=== PATIENT | female | born 1930 | race Caucasian/White ===

== ENCOUNTER 2021-09-25 22:53 | Inpatient (IN) | payer OTHER ==
[2021-09-26] MEDS ORDERED: LACTATED RINGERS SOLUTION 1000 ML INFUS.BAG IV ONE ×2 (01:33→03:57)
[2021-09-26 01:54] LABS: BASO % 0.4 % (0-2.0); EOS % 1.3 % (0-4.5); HEMATOCRIT 40.8 % (32.4-45.2); HEMOGLOBIN 13.4 GM/dL (10.7-15.3); LYMPH % 23.5 % (8-40); MCH 28.6 pg (25.7-33.7); MCHC 32.7 g/dl (32.0-36.0); MEAN CELL VOLUME 87.3 fl (80-96); MEAN PLT VOLUME 8.7 fl (7.5-11.1); MONO % 8.4 % (3.8-10.2); NEUT % 66.4 % (42.8-82.8); PLATELET COUNT 267 10^3/uL (134-434); RBC 4.68 M/mm3 (3.60-5.2); RDW 15.3 % (11.6-15.6); WHITE BLOOD COUNT 14.2 K/mm3 (4.0-10.0)
[2021-09-26 02:13] LABS: INR 1.36 (0.83-1.09); PROTHROMBIN TIME (PATIENT) 15.7 SEC (9.7-13.0)
[2021-09-26 02:14] LABS: ALBUMIN 3.6 g/dl (3.4-5.0); CALCIUM 9.9 mg/dL (8.5-10.1); CO2 30 mmol/L (21-32); GLUCOSE,RANDOM 309 mg/dL (74-106)
[2021-09-26 02:16] LABS: ACTIVATED PTT 38.5 SECONDS (25.2-36.5)
[2021-09-26 02:17] LABS: CREATININE 1.5 mg/dL (0.55-1.3); SGOT/AST 12 U/L (15-37); SGPT/ALT 15 U/L (13-61)
[2021-09-26 02:19] LABS: BILIRUBIN,TOTAL 0.3 mg/dL (0.2-1); TOT PROT 6.7 g/dl (6.4-8.2)
[2021-09-26 02:20] LABS: ALK PHOS 93 U/L (45-117)
[2021-09-26 02:34] LABS: ANION GAP 8 MMOL/L (8-16); CHLORIDE 102 mmol/L (98-107); SODIUM 139 mmol/L (136-145)
[2021-09-26] MEDS ORDERED: ACETAMINOPHEN 1000 MG/100 ML BAG IVPB ONE (02:42)
[2021-09-26] MEDS ORDERED: ACETAMINOPHEN INJECTION 100 ML IVPB ONE (02:47)
[2021-09-26] MEDS ORDERED: LACTATED RINGERS SOLUTION 1,000 ML/1,000 ML INFUS.BAG IV SCH (04:00)
[2021-09-26] MEDS ORDERED: LIDOCAINE 5% TOPICAL PATCH TP ONE (04:53)
[2021-09-26] MEDS ORDERED: LIDOCAINE 5% TOPICAL PATCH ONE (04:59)
[2021-09-26 05:27] LABS: HEMOGLOBIN 11.8 GM/dL (10.7-15.3); MCH 28.2 pg (25.7-33.7); MCHC 31.9 g/dl (32.0-36.0); MEAN CELL VOLUME 88.5 fl (80-96); MEAN PLT VOLUME 9.2 fl (7.5-11.1); PLATELET COUNT 295 10^3/uL (134-434); RBC 4.17 M/mm3 (3.60-5.2); RDW 15.3 % (11.6-15.6)
[2021-09-26] MEDS ORDERED: ALBUTEROL SO4 2.5/IPRATROPIUM 0.5 INH SOL 3 ML VIAL.NEB. NEB PRN (07:40)
[2021-09-26] MEDS: LACTATED RINGERS SOLUTION 1,000 ML/1,000 ML INFUS.BAG IV SCH (08:47)
[2021-09-26] MEDS: PANTOPRAZOLE 40 MG TABLET PO SCH (10:47)
[2021-09-26] MEDS: MAGNESIUM OXIDE 400 MG TABLET (FP) PO SCH ×2 (10:47→21:16)
[2021-09-26] MEDS: DULoxetine HCL 30 MG CAPSULE.DR PO SCH (10:47)
[2021-09-26] MEDS: ZINC OXIDE 20% TOPICAL OINTMENT 30 GM TUBE TP SCH ×2 (10:47→21:16)
[2021-09-26 11:49] VITALS: BMI 33.3
[2021-09-26] MEDS: INSULIN SLIDING SCALE (NOVOLOG) 1 VIAL SQ SCH ×2 (13:50→17:14)
[2021-09-26] MEDS: GABAPENTIN 100 MG CAPSULE PO SCH ×2 (13:52→21:16)
[2021-09-26] MEDS ORDERED: LIDOCAINE PATCH REMOVAL MC ONE (17:00)
[2021-09-27] MEDS: LEVOTHYROXINE NA 50 MCG TABLET (FP) PO SCH (06:16)
[2021-09-27] MEDS: GABAPENTIN 100 MG CAPSULE PO SCH ×3 (06:16→23:36)
[2021-09-27] MEDS: INSULIN SLIDING SCALE (NOVOLOG) 1 VIAL SQ SCH ×3 (06:17→16:49)
[2021-09-27 09:49] LABS: BASO % 0.5 % (0-2.0); EOS % 2.7 % (0-4.5); HEMOGLOBIN 9.2 GM/dL (10.7-15.3); LYMPH % 30.7 % (8-40); MCH 28.5 pg (25.7-33.7); MCHC 32.7 g/dl (32.0-36.0); MEAN PLT VOLUME 8.8 fl (7.5-11.1); MONO % 6.6 % (3.8-10.2); NEUT % 59.5 % (42.8-82.8); PLATELET COUNT 241 10^3/uL (134-434); RBC 3.22 M/mm3 (3.60-5.2); RDW 15.1 % (11.6-15.6); WHITE BLOOD COUNT 15.5 K/mm3 (4.0-10.0)
[2021-09-27 10:14] LABS: BLOOD UREA NITROGEN 33.4 mg/dL (7-18); CREATININE 1.4 mg/dL (0.55-1.3)
[2021-09-27 10:15] LABS: CALCIUM 9.3 mg/dL (8.5-10.1)
[2021-09-27 10:16] LABS: BILIRUBIN,TOTAL 0.3 mg/dL (0.2-1); TOT PROT 5.5 g/dl (6.4-8.2)
[2021-09-27] MEDS ORDERED: INSULIN (NOVOLOG) ASPART 100 UNITS/ML 10ML VIAL ONE (11:08)
[2021-09-27] MEDS: LACTATED RINGERS SOLUTION 1,000 ML/1,000 ML INFUS.BAG IV SCH ×2 (11:18→23:00)
[2021-09-27] MEDS: PANTOPRAZOLE 40 MG TABLET PO SCH (11:19)
[2021-09-27] MEDS: ZINC OXIDE 20% TOPICAL OINTMENT 30 GM TUBE TP SCH ×2 (11:19→23:37)
[2021-09-27] MEDS: DULoxetine HCL 30 MG CAPSULE.DR PO SCH (11:19)
[2021-09-27] MEDS: MAGNESIUM OXIDE 400 MG TABLET (FP) PO SCH ×2 (11:19→23:36)
[2021-09-27] MEDS ORDERED: PANTOPRAZOLE SODIUM 80 MG in SODIUM CHLORIDE 100 ML IVPB SCH (17:30)
[2021-09-27 20:15] LABS: BASO % 0.5 % (0-2.0); EOS % 2.6 % (0-4.5); HEMOGLOBIN 8.4 GM/dL (10.7-15.3); LYMPH % 34.4 % (8-40); MCH 28.5 pg (25.7-33.7); MCHC 32.2 g/dl (32.0-36.0); MEAN CELL VOLUME 88.4 fl (80-96); MONO % 7.4 % (3.8-10.2); NEUT % 55.1 % (42.8-82.8); PLATELET COUNT 229 10^3/uL (134-434); RBC 2.95 M/mm3 (3.60-5.2); RDW 15.7 % (11.6-15.6)
[2021-09-27] MEDS: PANTOPRAZOLE SODIUM 160 MG in SODIUM CHLORIDE 290 ML IVPB SCH (23:00)
[2021-09-28] MEDS: GABAPENTIN 100 MG CAPSULE PO SCH ×3 (06:00→23:57)
[2021-09-28] MEDS: INSULIN SLIDING SCALE (NOVOLOG) 1 VIAL SQ SCH ×4 (06:01→17:20)
[2021-09-28] MEDS: LEVOTHYROXINE NA 50 MCG TABLET (FP) PO SCH ×2 (06:01→06:40)
[2021-09-28] MEDS ORDERED: ALBUTEROL SO4 2.5/IPRATROPIUM 0.5 INH SOL 3 ML VIAL.NEB. NEB PRN (06:14)
[2021-09-28 07:33] LABS: BASO % 0.4 % (0-2.0); EOS % 3.1 % (0-4.5); HEMATOCRIT 23.8 % (32.4-45.2); HEMOGLOBIN 7.6 GM/dL (10.7-15.3); MCHC 31.8 g/dl (32.0-36.0); MEAN CELL VOLUME 88.3 fl (80-96); MEAN PLT VOLUME 9.1 fl (7.5-11.1); MONO % 7.9 % (3.8-10.2); NEUT % 56.6 % (42.8-82.8); PLATELET COUNT 214 10^3/uL (134-434); RDW 15.5 % (11.6-15.6); WHITE BLOOD COUNT 11.7 K/mm3 (4.0-10.0)
[2021-09-28 07:49] LABS: CALCIUM 8.5 mg/dL (8.5-10.1)
[2021-09-28 07:50] LABS: ALBUMIN 2.8 g/dl (3.4-5.0); BLOOD UREA NITROGEN 25.5 mg/dL (7-18)
[2021-09-28 07:53] LABS: CREATININE 1.1 mg/dL (0.55-1.3)
[2021-09-28 07:54] LABS: BILIRUBIN,TOTAL 0.4 mg/dL (0.2-1); TOT PROT 5.1 g/dl (6.4-8.2)
[2021-09-28] MEDS ORDERED: PHYTONADIONE 10 MG/1 ML AMP IVPB ONE (09:54)
[2021-09-28] MEDS: DULoxetine HCL 30 MG CAPSULE.DR PO SCH (09:55)
[2021-09-28] MEDS: MAGNESIUM OXIDE 400 MG TABLET (FP) PO SCH ×2 (09:55→23:57)
[2021-09-28] MEDS: KCL 10 MEQ IVPB 10 MEQ/100 ML INFUS.BAG IVPB SCH ×2 (09:55→14:35)
[2021-09-28] MEDS ORDERED: HUM PROTHROMBIN CPLX(PCC)4FACT 1,000 UNIT/40 ML VIAL IVPB ONE ×2 (09:55→10:45)
[2021-09-28] MEDS: ZINC OXIDE 20% TOPICAL OINTMENT 30 GM TUBE TP SCH ×2 (09:56→22:00)
[2021-09-28] MEDS: LACTATED RINGERS SOLUTION 1,000 ML/1,000 ML INFUS.BAG IV SCH (12:03)
[2021-09-28] MEDS: PANTOPRAZOLE SODIUM 160 MG in SODIUM CHLORIDE 290 ML IVPB SCH (13:26)
[2021-09-28 19:17] LABS: BASO % 0.5 % (0-2.0); EOS % 1.8 % (0-4.5); HEMATOCRIT 26.2 % (32.4-45.2); HEMOGLOBIN 8.5 GM/dL (10.7-15.3); LYMPH % 30.9 % (8-40); MCH 28.6 pg (25.7-33.7); MCHC 32.6 g/dl (32.0-36.0); MEAN CELL VOLUME 87.7 fl (80-96); MEAN PLT VOLUME 8.9 fl (7.5-11.1); MONO % 7.7 % (3.8-10.2); NEUT % 59.1 % (42.8-82.8); PLATELET COUNT 208 10^3/uL (134-434); RBC 2.99 M/mm3 (3.60-5.2); WHITE BLOOD COUNT 11.8 K/mm3 (4.0-10.0)
[2021-09-29] MEDS: MAGNESIUM OXIDE 400 MG TABLET (FP) PO SCH ×3 (00:11→21:42)
[2021-09-29] MEDS: GABAPENTIN 100 MG CAPSULE PO SCH ×4 (00:12→21:42)
[2021-09-29] MEDS: LACTATED RINGERS SOLUTION 1,000 ML/1,000 ML INFUS.BAG IV SCH ×3 (00:14→11:24)
[2021-09-29 00:58] LABS: HEMOGLOBIN 8.3 GM/dL (10.7-15.3); MONO % 8.4 % (3.8-10.2)
[2021-09-29 01:07] LABS: HEMATOCRIT 24.7 % (32.4-45.2); MCH 28.9 pg (25.7-33.7); MCHC 33.5 g/dl (32.0-36.0); MEAN CELL VOLUME 86.4 fl (80-96); MEAN PLT VOLUME 8.6 fl (7.5-11.1); NEUT % 56.6 % (42.8-82.8); PLATELET COUNT 193 10^3/uL (134-434); RBC 2.86 M/mm3 (3.60-5.2); RDW 15.4 % (11.6-15.6); WHITE BLOOD COUNT 10.7 K/mm3 (4.0-10.0)
[2021-09-29 01:08] LABS: BASO % 0.5 % (0-2.0); EOS % 2.5 % (0-4.5)
[2021-09-29] MEDS: LEVOTHYROXINE NA 50 MCG TABLET (FP) PO SCH (07:38)
[2021-09-29 07:42] LABS: BASO % 0.5 % (0-2.0); EOS % 2.2 % (0-4.5); HEMOGLOBIN 8.3 GM/dL (10.7-15.3); MCH 28.2 pg (25.7-33.7); MEAN CELL VOLUME 88.2 fl (80-96); MEAN PLT VOLUME 8.6 fl (7.5-11.1); MONO % 7.9 % (3.8-10.2); NEUT % 62.4 % (42.8-82.8); PLATELET COUNT 201 10^3/uL (134-434); RBC 2.95 M/mm3 (3.60-5.2); RDW 15.1 % (11.6-15.6); WHITE BLOOD COUNT 11.4 K/mm3 (4.0-10.0)
[2021-09-29] MEDS: INSULIN SLIDING SCALE (NOVOLOG) 1 VIAL SQ SCH ×3 (07:51→17:06)
[2021-09-29] MEDS: DULoxetine HCL 30 MG CAPSULE.DR PO SCH (09:25)
[2021-09-29] MEDS: PANTOPRAZOLE SODIUM 160 MG in SODIUM CHLORIDE 290 ML IVPB SCH (09:25)
[2021-09-29] MEDS: ZINC OXIDE 20% TOPICAL OINTMENT 30 GM TUBE TP SCH ×2 (09:26→21:42)
[2021-09-29 15:14] LABS: BASO % 0.4 % (0-2.0); EOS % 1.5 % (0-4.5); HEMATOCRIT 24.2 % (32.4-45.2); LYMPH % 25.5 % (8-40); MCH 28.8 pg (25.7-33.7); MCHC 33.2 g/dl (32.0-36.0); MEAN CELL VOLUME 86.9 fl (80-96); MEAN PLT VOLUME 8.3 fl (7.5-11.1); MONO % 7.2 % (3.8-10.2); NEUT % 65.4 % (42.8-82.8); PLATELET COUNT 199 10^3/uL (134-434); RBC 2.79 M/mm3 (3.60-5.2); RDW 15.2 % (11.6-15.6); WHITE BLOOD COUNT 9.9 K/mm3 (4.0-10.0)
[2021-09-29 15:34] LABS: ALBUMIN 2.8 g/dl (3.4-5.0); CALCIUM 8.1 mg/dL (8.5-10.1)
[2021-09-29 15:37] LABS: CREATININE 0.9 mg/dL (0.55-1.3)
[2021-09-29 15:38] LABS: BILIRUBIN,TOTAL 0.5 mg/dL (0.2-1)
[2021-09-29] MEDS: BACITRACIN 15 GM TUBE TOPICAL OINTMENT TP SCH (18:25)
[2021-09-29] MEDS ORDERED: ALBUTEROL SO4 2.5/IPRATROPIUM 0.5 INH SOL 3 ML VIAL.NEB. NEB PRN (19:13)
[2021-09-29] MEDS: POLYETHYLENE GLYCOL (HEALTHYLAX) 3350 17 GM PACKET PO SCH (21:13)
[2021-09-30] MEDS ORDERED: PANTOPRAZOLE SODIUM 160 MG in SODIUM CHLORIDE 290 ML IVPB SCH (06:00)
[2021-09-30] MEDS: LEVOTHYROXINE NA 50 MCG TABLET (FP) PO SCH (06:32)
[2021-09-30] MEDS: GABAPENTIN 100 MG CAPSULE PO SCH ×3 (06:32→21:19)
[2021-09-30] MEDS: INSULIN SLIDING SCALE (NOVOLOG) 1 VIAL SQ SCH ×3 (06:34→17:31)
[2021-09-30] MEDS: BACITRACIN 15 GM TUBE TOPICAL OINTMENT TP SCH (10:42)
[2021-09-30] MEDS: POLYETHYLENE GLYCOL (HEALTHYLAX) 3350 17 GM PACKET PO SCH ×2 (10:43→21:19)
[2021-09-30] MEDS: DULoxetine HCL 30 MG CAPSULE.DR PO SCH (10:44)
[2021-09-30] MEDS: MAGNESIUM OXIDE 400 MG TABLET (FP) PO SCH ×2 (10:44→21:19)
[2021-09-30 11:18] LABS: BASO % 0.5 % (0-2.0); EOS % 1.7 % (0-4.5); HEMATOCRIT 27.7 % (32.4-45.2); HEMOGLOBIN 9.1 GM/dL (10.7-15.3); LYMPH % 24.9 % (8-40); MCHC 32.9 g/dl (32.0-36.0); MEAN CELL VOLUME 88.2 fl (80-96); MEAN PLT VOLUME 8.2 fl (7.5-11.1); MONO % 8.4 % (3.8-10.2); NEUT % 64.5 % (42.8-82.8); PLATELET COUNT 243 10^3/uL (134-434); RBC 3.14 M/mm3 (3.60-5.2); RDW 14.8 % (11.6-15.6); WHITE BLOOD COUNT 10.7 K/mm3 (4.0-10.0)
[2021-09-30] MEDS: LACTATED RINGERS SOLUTION 1,000 ML/1,000 ML INFUS.BAG IV SCH (12:07)
[2021-09-30] MEDS: ZINC OXIDE 20% TOPICAL OINTMENT 30 GM TUBE TP SCH ×2 (12:07→21:19)
[2021-09-30] MEDS ORDERED: BISACODYL 5 MG TABLET.DR (FP) PO ONE (15:00)
[2021-09-30] MEDS ORDERED: PEG 3350/NA SULF BICARB CL/KCL 4000 ML SOLN.RECON PO ONE (16:00)
[2021-10-01] MEDS: LACTATED RINGERS SOLUTION 1,000 ML/1,000 ML INFUS.BAG IV SCH ×2 (01:07→12:56)
[2021-10-01] MEDS: GABAPENTIN 100 MG CAPSULE PO SCH ×3 (06:06→22:17)
[2021-10-01] MEDS: LEVOTHYROXINE NA 50 MCG TABLET (FP) PO SCH (06:06)
[2021-10-01] MEDS: INSULIN SLIDING SCALE (NOVOLOG) 1 VIAL SQ SCH ×4 (06:06→23:10)
[2021-10-01 08:37] LABS: INR 1.12 (0.83-1.09); PROTHROMBIN TIME (PATIENT) 12.9 SEC (9.7-13.0)
[2021-10-01 08:44] LABS: BASO % 0.4 % (0-2.0); EOS % 2.8 % (0-4.5); HEMATOCRIT 26.8 % (32.4-45.2); HEMOGLOBIN 8.8 GM/dL (10.7-15.3); LYMPH % 31.7 % (8-40); MCH 28.9 pg (25.7-33.7); MCHC 32.8 g/dl (32.0-36.0); MEAN CELL VOLUME 88.1 fl (80-96); MEAN PLT VOLUME 8.6 fl (7.5-11.1); MONO % 8.7 % (3.8-10.2); NEUT % 56.4 % (42.8-82.8); PLATELET COUNT 248 10^3/uL (134-434); RBC 3.05 M/mm3 (3.60-5.2); RDW 14.8 % (11.6-15.6)
[2021-10-01 08:55] LABS: CHLORIDE 104 mmol/L (98-107); SODIUM 143 mmol/L (136-145)
[2021-10-01 08:59] LABS: BLOOD UREA NITROGEN 3.6 mg/dL (7-18); CALCIUM 8.5 mg/dL (8.5-10.1); CO2 32 mmol/L (21-32); GLUCOSE,RANDOM 205 mg/dL (74-106)
[2021-10-01 09:03] LABS: CREATININE 0.8 mg/dL (0.55-1.3)
[2021-10-01 09:09] LABS: ANION GAP 7 MMOL/L (8-16)
[2021-10-01] MEDS ORDERED: TETRACAINE/BENZOCAINE/BUTAMBEN 20 GM SPR TP ONE ×2 (10:25→10:39)
[2021-10-01] MEDS ORDERED: LIDOCAINE HCL 2% JELLY 10 ML CARTRIDGE ONE (11:12)
[2021-10-01] MEDS ORDERED: LIDOCAINE HCL 2% 100 MG/5 ML DISP.SYRIN NR ONE (11:14)
[2021-10-01] MEDS: KCL 10 MEQ IVPB 10 MEQ/100 ML INFUS.BAG IVPB SCH ×3 (12:28→17:02)
[2021-10-01] MEDS: PANTOPRAZOLE 40 MG TABLET PO SCH (12:54)
[2021-10-01] MEDS: MAGNESIUM OXIDE 400 MG TABLET (FP) PO SCH ×2 (12:54→22:17)
[2021-10-01] MEDS: POLYETHYLENE GLYCOL (HEALTHYLAX) 3350 17 GM PACKET PO SCH ×2 (12:55→23:01)
[2021-10-01] MEDS: BACITRACIN 15 GM TUBE TOPICAL OINTMENT TP SCH (12:55)
[2021-10-01] MEDS: ZINC OXIDE 20% TOPICAL OINTMENT 30 GM TUBE TP SCH ×2 (12:55→22:18)
[2021-10-01] MEDS: DULoxetine HCL 30 MG CAPSULE.DR PO SCH (12:55)
[2021-10-01] MEDS ORDERED: POTASSIUM CHLORIDE TABS 20 MEQ TABLET.ER (FP) PO ONE (14:19)
[2021-10-01 16:04] LABS: BASO % 0.7 % (0-2.0); EOS % 2.4 % (0-4.5); HEMOGLOBIN 8.7 GM/dL (10.7-15.3); MCH 29.5 pg (25.7-33.7); MCHC 33.6 g/dl (32.0-36.0); MEAN CELL VOLUME 87.9 fl (80-96); MEAN PLT VOLUME 8.6 fl (7.5-11.1); MONO % 9.1 % (3.8-10.2); NEUT % 59.8 % (42.8-82.8); PLATELET COUNT 240 10^3/uL (134-434); RBC 2.96 M/mm3 (3.60-5.2); RDW 15.2 % (11.6-15.6); WHITE BLOOD COUNT 10.3 K/mm3 (4.0-10.0)
[2021-10-01] MEDS ORDERED: INSULIN SLIDING SCALE (NOVOLOG) 1 VIAL SQ SCH (23:00)
[2021-10-02] MEDS: LACTATED RINGERS SOLUTION 1,000 ML/1,000 ML INFUS.BAG IV SCH ×2 (03:44→11:25)
[2021-10-02] MEDS: GABAPENTIN 100 MG CAPSULE PO SCH ×3 (06:41→22:25)
[2021-10-02] MEDS: LEVOTHYROXINE NA 50 MCG TABLET (FP) PO SCH (06:41)
[2021-10-02] MEDS: INSULIN SLIDING SCALE (NOVOLOG) 1 VIAL SQ SCH ×4 (06:46→22:28)
[2021-10-02 09:02] LABS: BASO % 0.4 % (0-2.0); EOS % 1.4 % (0-4.5); HEMATOCRIT 26.1 % (32.4-45.2); HEMOGLOBIN 8.4 GM/dL (10.7-15.3); LYMPH % 24.4 % (8-40); MCH 28.6 pg (25.7-33.7); MCHC 32.1 g/dl (32.0-36.0); MEAN PLT VOLUME 8.7 fl (7.5-11.1); MONO % 8.2 % (3.8-10.2); NEUT % 65.6 % (42.8-82.8); PLATELET COUNT 239 10^3/uL (134-434); RBC 2.93 M/mm3 (3.60-5.2); RDW 15.1 % (11.6-15.6); WHITE BLOOD COUNT 12.6 K/mm3 (4.0-10.0)
[2021-10-02 09:22] LABS: CALCIUM 8.3 mg/dL (8.5-10.1)
[2021-10-02 09:23] LABS: BLOOD UREA NITROGEN 4.5 mg/dL (7-18)
[2021-10-02 09:26] LABS: CREATININE 0.9 mg/dL (0.55-1.3)
[2021-10-02] MEDS: BACITRACIN 15 GM TUBE TOPICAL OINTMENT TP SCH (11:24)
[2021-10-02] MEDS: MAGNESIUM OXIDE 400 MG TABLET (FP) PO SCH ×2 (11:24→22:25)
[2021-10-02] MEDS: DULoxetine HCL 30 MG CAPSULE.DR PO SCH (11:24)
[2021-10-02] MEDS: POLYETHYLENE GLYCOL (HEALTHYLAX) 3350 17 GM PACKET PO SCH ×2 (11:24→22:26)
[2021-10-02] MEDS: PANTOPRAZOLE 40 MG TABLET PO SCH (11:24)
[2021-10-02] MEDS: ZINC OXIDE 20% TOPICAL OINTMENT 30 GM TUBE TP SCH ×2 (11:25→22:28)
[2021-10-03] MEDS: LACTATED RINGERS SOLUTION 1,000 ML/1,000 ML INFUS.BAG IV SCH ×2 (02:52→14:55)
[2021-10-03] MEDS: LEVOTHYROXINE NA 50 MCG TABLET (FP) PO SCH (06:39)
[2021-10-03] MEDS: GABAPENTIN 100 MG CAPSULE PO SCH ×3 (06:39→22:25)
[2021-10-03] MEDS: INSULIN SLIDING SCALE (NOVOLOG) 1 VIAL SQ SCH ×4 (06:40→22:27)
[2021-10-03 08:14] LABS: BASO % 0.5 % (0-2.0); EOS % 2.6 % (0-4.5); HEMOGLOBIN 8.8 GM/dL (10.7-15.3); LYMPH % 26.1 % (8-40); MCHC 32.7 g/dl (32.0-36.0); MEAN CELL VOLUME 88.7 fl (80-96); MEAN PLT VOLUME 8.5 fl (7.5-11.1); MONO % 7.2 % (3.8-10.2); NEUT % 63.6 % (42.8-82.8); PLATELET COUNT 236 10^3/uL (134-434); RBC 3.05 M/mm3 (3.60-5.2); RDW 15.3 % (11.6-15.6); WHITE BLOOD COUNT 10.2 K/mm3 (4.0-10.0)
[2021-10-03 08:36] LABS: CALCIUM 8.4 mg/dL (8.5-10.1)
[2021-10-03 08:37] LABS: ALBUMIN 2.8 g/dl (3.4-5.0)
[2021-10-03 08:38] LABS: MAGNESIUM 1.6 mg/dL (1.8-2.4)
[2021-10-03 08:40] LABS: CREATININE 0.8 mg/dL (0.55-1.3)
[2021-10-03 08:41] LABS: BILIRUBIN,TOTAL 0.4 mg/dL (0.2-1); TOT PROT 5.5 g/dl (6.4-8.2)
[2021-10-03] MEDS: BACITRACIN 15 GM TUBE TOPICAL OINTMENT TP SCH (09:23)
[2021-10-03] MEDS: PANTOPRAZOLE 40 MG TABLET PO SCH (09:23)
[2021-10-03] MEDS: ZINC OXIDE 20% TOPICAL OINTMENT 30 GM TUBE TP SCH ×2 (09:23→22:24)
[2021-10-03] MEDS: DULoxetine HCL 30 MG CAPSULE.DR PO SCH (09:23)
[2021-10-03] MEDS: POLYETHYLENE GLYCOL (HEALTHYLAX) 3350 17 GM PACKET PO SCH ×3 (09:23→22:24)
[2021-10-03] MEDS: MAGNESIUM OXIDE 400 MG TABLET (FP) PO SCH ×2 (09:23→22:25)
[2021-10-03] MEDS ORDERED: POTASSIUM CHLORIDE ORAL LIQUID 20 MEQ/15 ML PO ONE (12:10)
[2021-10-04] MEDS: LACTATED RINGERS SOLUTION 1,000 ML/1,000 ML INFUS.BAG IV SCH (02:35)
[2021-10-04] MEDS: GABAPENTIN 100 MG CAPSULE PO SCH ×3 (06:34→22:40)
[2021-10-04] MEDS: INSULIN SLIDING SCALE (NOVOLOG) 1 VIAL SQ SCH ×4 (06:39→22:41)
[2021-10-04] MEDS: LEVOTHYROXINE NA 50 MCG TABLET (FP) PO SCH (06:41)
[2021-10-04 08:40] LABS: BASO % 0.4 % (0-2.0); EOS % 2.8 % (0-4.5); HEMATOCRIT 27.6 % (32.4-45.2); HEMOGLOBIN 9.1 GM/dL (10.7-15.3); LYMPH % 25.6 % (8-40); MEAN CELL VOLUME 87.7 fl (80-96); MEAN PLT VOLUME 8.2 fl (7.5-11.1); MONO % 6.8 % (3.8-10.2); NEUT % 64.4 % (42.8-82.8); PLATELET COUNT 263 10^3/uL (134-434); RBC 3.15 M/mm3 (3.60-5.2); RDW 14.8 % (11.6-15.6); WHITE BLOOD COUNT 11.3 K/mm3 (4.0-10.0)
[2021-10-04 09:03] LABS: BLOOD UREA NITROGEN 7.8 mg/dL (7-18); CALCIUM 9.2 mg/dL (8.5-10.1)
[2021-10-04] MEDS: POLYETHYLENE GLYCOL (HEALTHYLAX) 3350 17 GM PACKET PO SCH ×2 (10:48→22:40)
[2021-10-04] MEDS: MAGNESIUM OXIDE 400 MG TABLET (FP) PO SCH ×2 (10:51→22:40)
[2021-10-04] MEDS: DULoxetine HCL 30 MG CAPSULE.DR PO SCH (10:51)
[2021-10-04] MEDS: PANTOPRAZOLE 40 MG TABLET PO SCH (10:51)
[2021-10-04] MEDS: BACITRACIN 15 GM TUBE TOPICAL OINTMENT TP SCH (15:42)
[2021-10-04] MEDS: ZINC OXIDE 20% TOPICAL OINTMENT 30 GM TUBE TP SCH ×2 (15:43→22:42)
[2021-10-04] MEDS: APIXABAN 2.5 MG TABLET PO SCH (22:40)
[2021-10-05] MEDS: GABAPENTIN 100 MG CAPSULE PO SCH ×3 (05:59→21:16)
[2021-10-05] MEDS: LEVOTHYROXINE NA 50 MCG TABLET (FP) PO SCH (05:59)
[2021-10-05] MEDS: INSULIN SLIDING SCALE (NOVOLOG) 1 VIAL SQ SCH ×4 (06:01→21:16)
[2021-10-05 09:05] LABS: BASO % 0.5 % (0-2.0); HEMATOCRIT 28.2 % (32.4-45.2); HEMOGLOBIN 9.3 GM/dL (10.7-15.3); LYMPH % 26.1 % (8-40); MCHC 32.9 g/dl (32.0-36.0); MEAN CELL VOLUME 88.1 fl (80-96); MEAN PLT VOLUME 8.2 fl (7.5-11.1); MONO % 8.6 % (3.8-10.2); NEUT % 61.8 % (42.8-82.8); PLATELET COUNT 285 10^3/uL (134-434); RDW 14.9 % (11.6-15.6); WHITE BLOOD COUNT 11.8 K/mm3 (4.0-10.0)
[2021-10-05 09:29] LABS: BLOOD UREA NITROGEN 9.5 mg/dL (7-18); CALCIUM 8.8 mg/dL (8.5-10.1)
[2021-10-05] MEDS: APIXABAN 2.5 MG TABLET PO SCH ×2 (10:02→21:16)
[2021-10-05] MEDS: MAGNESIUM OXIDE 400 MG TABLET (FP) PO SCH ×2 (10:02→21:16)
[2021-10-05] MEDS: DULoxetine HCL 30 MG CAPSULE.DR PO SCH (10:02)
[2021-10-05] MEDS: INSULIN (LEVEMIR) 100 UNITS/ML UNITS SQ SCH ×2 (10:03→21:16)
[2021-10-05] MEDS: PANTOPRAZOLE 40 MG TABLET PO SCH (10:03)
[2021-10-05] MEDS: POLYETHYLENE GLYCOL (HEALTHYLAX) 3350 17 GM PACKET PO SCH ×2 (10:03→21:16)
[2021-10-05] MEDS: BACITRACIN 15 GM TUBE TOPICAL OINTMENT TP SCH (10:04)
[2021-10-05] MEDS: ZINC OXIDE 20% TOPICAL OINTMENT 30 GM TUBE TP SCH ×2 (10:05→21:17)
[2021-10-05 22:28] VITALS: TEMP 98.8
[2021-10-06 05:51] VITALS: BP 111/63; PULSE 84
[2021-10-06] MEDS: INSULIN SLIDING SCALE (NOVOLOG) 1 VIAL SQ SCH (06:25)
[2021-10-06] MEDS: GABAPENTIN 100 MG CAPSULE PO SCH (06:25)
[2021-10-06] MEDS: LEVOTHYROXINE NA 50 MCG TABLET (FP) PO SCH (06:25)
[2021-10-06] MEDS: INSULIN (LEVEMIR) 100 UNITS/ML UNITS SQ SCH (06:25)
[2021-10-06] MEDS: MAGNESIUM OXIDE 400 MG TABLET (FP) PO SCH (09:11)
[2021-10-06] MEDS: PANTOPRAZOLE 40 MG TABLET PO SCH (09:12)
[2021-10-06] MEDS: DULoxetine HCL 30 MG CAPSULE.DR PO SCH (09:12)
[2021-10-06] MEDS: POLYETHYLENE GLYCOL (HEALTHYLAX) 3350 17 GM PACKET PO SCH (09:12)
[2021-10-06] MEDS: APIXABAN 2.5 MG TABLET PO SCH (09:12)
[2021-10-06] MEDS: BACITRACIN 15 GM TUBE TOPICAL OINTMENT TP SCH (09:14)
== END 2021-10-06 12:20 | DRG 813 ==
LOC: JER 22:53 → JERBED 09-26 04:35 → J6S 09-26 05:59 → J4W 09-27 21:18 → J7W 09-29 15:54
PROC: 0DB78ZX Excision of Stomach, Pylorus, Via Natural or Artificial Opening Endoscopic, Diagnostic (ICD-10-PCS; 2021-10-01)
PROC: 0DB68ZX Excision of Stomach, Via Natural or Artificial Opening Endoscopic, Diagnostic (ICD-10-PCS; 2021-10-01)
PROC: 0DBL8ZX Excision of Transverse Colon, Via Natural or Artificial Opening Endoscopic, Diagnostic (ICD-10-PCS; 2021-10-01)
PROC: 0DB98ZX Excision of Duodenum, Via Natural or Artificial Opening Endoscopic, Diagnostic (ICD-10-PCS; principal; 2021-10-01 10:30)
DX: D68.32 Hemorrhagic disorder due to extrinsic circulating anticoagulants (principal); K57.93 Diverticulitis of intestine, part unspecified, without perforation or abscess with bleeding; N17.9 Acute kidney failure, unspecified; I48.91 Unspecified atrial fibrillation; I10 Essential (primary) hypertension; K62.9 Disease of anus and rectum, unspecified; E78.5 Hyperlipidemia, unspecified; D12.3 Benign neoplasm of transverse colon; K55.20 Angiodysplasia of colon without hemorrhage; E03.9 Hypothyroidism, unspecified; K64.8 Other hemorrhoids; D12.1 Benign neoplasm of appendix; T45.515A Adverse effect of anticoagulants, initial encounter; F41.8 Other specified anxiety disorders; K29.60 Other gastritis without bleeding; I12.9 Hypertensive chronic kidney disease with stage 1 through stage 4 chronic kidney disease, or unspecified chronic kidney disease; E11.22 Type 2 diabetes mellitus with diabetic chronic kidney disease; N18.9 Chronic kidney disease, unspecified; F03.90 Unspecified dementia, unspecified severity, without behavioral disturbance, psychotic disturbance, mood disturbance, and anxiety; E66.9 Obesity, unspecified; Z68.33 Body mass index [BMI] 33.0-33.9, adult; Z99.81 Dependence on supplemental oxygen
CPT/HCPCS: 36415; 36430; 74176-TC; 80048; 80053; 82272; 82550; 82962; 83735; 84484; 85025; 85027; 85610; 85730; 86850; 86900; 86901; 86922; 87070; 87186; 87205; 88305-TC; 93005; 93010; 97116-GP; 97161-GP; 99285-25; C9803; J0131; J7168; P9058; U0003; U0005

== ENCOUNTER 2021-11-29 21:20 | Inpatient (IN) | payer OTHER ==
[2021-11-29] MEDS ORDERED: ACETAMINOPHEN 1000 MG/100 ML BAG IVPB ONE (22:53)
[2021-11-29] MEDS ORDERED: SODIUM CHLORIDE 0.9% 500 ML INFUS.BAG IV ONE (22:54)
[2021-11-29] MEDS ORDERED: ACETAMINOPHEN INJECTION 100 ML IVPB ONE (22:59)
[2021-11-29 23:09] LABS: ALBUMIN 3.1 g/dl (3.4-5.0); CALCIUM 8.8 mg/dL (8.5-10.1)
[2021-11-29 23:10] LABS: MAGNESIUM 1.6 mg/dL (1.8-2.4)
[2021-11-29 23:12] LABS: CREATININE 1.2 mg/dL (0.55-1.3)
[2021-11-29 23:14] LABS: BILIRUBIN,TOTAL 0.4 mg/dL (0.2-1); TOT PROT 6.3 g/dl (6.4-8.2)
[2021-11-30 00:15] LABS: BASO % 0.8 % (0-2.0); EOS % 2.6 % (0-4.5); HEMOGLOBIN 11.1 GM/dL (10.7-15.3); LYMPH % 29.1 % (8-40); MCH 25.3 pg (25.7-33.7); MCHC 32.8 g/dl (32.0-36.0); MEAN CELL VOLUME 77.1 fl (80-96); MEAN PLT VOLUME 8.6 fl (7.5-11.1); MONO % 15.8 % (3.8-10.2); NEUT % 51.7 % (42.8-82.8); PLATELET COUNT 265 10^3/uL (134-434); RBC 4.41 M/mm3 (3.60-5.2); RDW 15.6 % (11.6-15.6); WHITE BLOOD COUNT 8.1 K/mm3 (4.0-10.0)
[2021-11-30 01:33] LABS: PH,URINE 6.5 (5.0-8.0); URINE APPEARANCE CLEAR; URINE BILIRUBIN NEGATIVE (NEGATIVE); URINE COLOR YELLOW; URINE GLUCOSE (UA) NEGATIVE (NEGATIVE); URINE KETONE NEGATIVE (NEGATIVE); URINE LEUK ESTERASE NEGATIVE (NEGATIVE); URINE NITRITE NEGATIVE (NEGATIVE); URINE PROTEIN NEGATIVE (NEGATIVE); URINE UROBILINOGEN 0.2 mg/dL (0.2-1.0)
[2021-11-30] MEDS ORDERED: LACTATED RINGERS SOLUTION 1000 ML INFUS.BAG IV ONE (03:37)
[2021-11-30] MEDS ORDERED: AZITHROMYCIN 250 MG TABLET PO ONE (04:39)
[2021-11-30] MEDS: GABAPENTIN 100 MG CAPSULE PO SCH ×3 (06:24→21:33)
[2021-11-30] MEDS: LEVOTHYROXINE NA 50 MCG TABLET (FP) PO SCH (06:24)
[2021-11-30] MEDS: INSULIN SLIDING SCALE (NOVOLOG) 1 VIAL SQ SCH ×4 (06:24→21:33)
[2021-11-30 06:54] VITALS: BMI 26.9
[2021-11-30] MEDS ORDERED: MAGNESIUM OXIDE 400 MG TABLET (FP) PO ONE (08:24)
[2021-11-30] MEDS: ALBUTEROL SO4 2.5/IPRATROPIUM 0.5 INH SOL 3 ML VIAL.NEB. NEB SCH ×3 (09:00→19:24)
[2021-11-30] MEDS ORDERED: CEFTRIAXONE 1 GM in DEXTROSE 5%-WATER - 50 ML IVPB SCH (10:00)
[2021-11-30] MEDS: APIXABAN 2.5 MG TABLET PO SCH ×2 (10:48→21:33)
[2021-11-30] MEDS: PANTOPRAZOLE 40 MG TABLET PO SCH (10:49)
[2021-11-30] MEDS: DULoxetine HCL 30 MG CAPSULE.DR PO SCH (11:29)
[2021-11-30] MEDS ORDERED: MEROPENEM 1 GM VIAL (RESTRICTED TO ID) IVPB ONE ×2 (12:47→16:52)
[2021-11-30] MEDS ORDERED: DEXTROSE 5%-WATER 100 ML IVPB ONE ×2 (12:47→16:52)
[2021-11-30] MEDS: MEROPENEM 1 GM in DEXTROSE 5%-WATER 100 ML IVPB SCH ×2 (12:48→17:08)
[2021-11-30] MEDS ORDERED: ALBUTEROL SO4 2.5/IPRATROPIUM 0.5 INH SOL 3 ML VIAL.NEB. NEB SCH (16:00)
[2021-12-01] MEDS ORDERED: MEROPENEM 1 GM VIAL (RESTRICTED TO ID) IVPB ONE ×3 (00:55→16:34)
[2021-12-01] MEDS ORDERED: DEXTROSE 5%-WATER 100 ML IVPB ONE ×3 (00:55→16:34)
[2021-12-01] MEDS: MEROPENEM 1 GM in DEXTROSE 5%-WATER 100 ML IVPB SCH ×3 (01:04→17:22)
[2021-12-01] MEDS: GABAPENTIN 100 MG CAPSULE PO SCH ×3 (06:23→21:56)
[2021-12-01] MEDS: LEVOTHYROXINE NA 50 MCG TABLET (FP) PO SCH (06:23)
[2021-12-01] MEDS: INSULIN SLIDING SCALE (NOVOLOG) 1 VIAL SQ SCH ×4 (06:24→21:56)
[2021-12-01] MEDS: ALBUTEROL SO4 2.5/IPRATROPIUM 0.5 INH SOL 3 ML VIAL.NEB. NEB SCH ×4 (08:48→20:39)
[2021-12-01] MEDS ORDERED: AZITHROMYCIN 250 MG TABLET PO SCH (10:00)
[2021-12-01 10:22] LABS: BASO % 0.6 % (0-2.0); EOS % 2.6 % (0-4.5); HEMATOCRIT 32.5 % (32.4-45.2); HEMOGLOBIN 10.7 GM/dL (10.7-15.3); LYMPH % 26.2 % (8-40); MCH 25.6 pg (25.7-33.7); MEAN CELL VOLUME 77.6 fl (80-96); MEAN PLT VOLUME 8.5 fl (7.5-11.1); MONO % 9.9 % (3.8-10.2); NEUT % 60.7 % (42.8-82.8); PLATELET COUNT 255 10^3/uL (134-434); RBC 4.19 M/mm3 (3.60-5.2); RDW 15.8 % (11.6-15.6)
[2021-12-01] MEDS ORDERED: TRIMETHOBENZAMIDE HCL 300 MG CAPSULE PO ONE (10:39)
[2021-12-01 10:53] LABS: MAGNESIUM 1.7 mg/dL (1.8-2.4)
[2021-12-01 10:57] LABS: BILIRUBIN,TOTAL 0.8 mg/dL (0.2-1)
[2021-12-01] MEDS: DULoxetine HCL 30 MG CAPSULE.DR PO SCH (11:26)
[2021-12-01] MEDS: PANTOPRAZOLE 40 MG TABLET PO SCH (11:26)
[2021-12-01] MEDS: APIXABAN 2.5 MG TABLET PO SCH ×2 (11:26→21:56)
[2021-12-01] MEDS ORDERED: MAGNESIUM OXIDE 400 MG TABLET (FP) PO ONE (15:00)
[2021-12-02] MEDS ORDERED: MEROPENEM 1 GM VIAL (RESTRICTED TO ID) IVPB ONE ×3 (01:14→17:09)
[2021-12-02] MEDS ORDERED: DEXTROSE 5%-WATER 100 ML IVPB ONE ×3 (01:14→17:09)
[2021-12-02] MEDS: MEROPENEM 1 GM in DEXTROSE 5%-WATER 100 ML IVPB SCH ×3 (01:56→17:12)
[2021-12-02] MEDS: GABAPENTIN 100 MG CAPSULE PO SCH ×3 (06:06→21:15)
[2021-12-02] MEDS: LEVOTHYROXINE NA 50 MCG TABLET (FP) PO SCH (06:06)
[2021-12-02] MEDS: INSULIN SLIDING SCALE (NOVOLOG) 1 VIAL SQ SCH ×4 (06:06→21:14)
[2021-12-02] MEDS: ALBUTEROL SO4 2.5/IPRATROPIUM 0.5 INH SOL 3 ML VIAL.NEB. NEB SCH ×4 (08:12→21:00)
[2021-12-02 09:13] LABS: CALCIUM 8.4 mg/dL (8.5-10.1)
[2021-12-02 09:14] LABS: ALBUMIN 2.6 g/dl (3.4-5.0); BLOOD UREA NITROGEN 7.9 mg/dL (7-18)
[2021-12-02 09:17] LABS: BASO % 0.5 % (0-2.0); CREATININE 0.9 mg/dL (0.55-1.3); EOS % 3.1 % (0-4.5); HEMATOCRIT 33.3 % (32.4-45.2); HEMOGLOBIN 10.5 GM/dL (10.7-15.3); LYMPH % 23.9 % (8-40); MCH 24.8 pg (25.7-33.7); MCHC 31.7 g/dl (32.0-36.0); MEAN CELL VOLUME 78.3 fl (80-96); MEAN PLT VOLUME 9.1 fl (7.5-11.1); MONO % 8.6 % (3.8-10.2); NEUT % 63.9 % (42.8-82.8); PLATELET COUNT 253 10^3/uL (134-434); RBC 4.25 M/mm3 (3.60-5.2); RDW 15.7 % (11.6-15.6); WHITE BLOOD COUNT 9.9 K/mm3 (4.0-10.0)
[2021-12-02 09:18] LABS: BILIRUBIN,TOTAL 0.5 mg/dL (0.2-1); TOT PROT 5.7 g/dl (6.4-8.2)
[2021-12-02] MEDS: PANTOPRAZOLE 40 MG TABLET PO SCH (10:56)
[2021-12-02] MEDS: DULoxetine HCL 30 MG CAPSULE.DR PO SCH (10:56)
[2021-12-02] MEDS: APIXABAN 2.5 MG TABLET PO SCH ×2 (10:56→21:15)
[2021-12-03] MEDS ORDERED: MEROPENEM 1 GM VIAL (RESTRICTED TO ID) IVPB ONE ×6 (00:58→20:56)
[2021-12-03] MEDS ORDERED: DEXTROSE 5%-WATER 100 ML IVPB ONE ×6 (00:59→20:56)
[2021-12-03] MEDS: MEROPENEM 1 GM in DEXTROSE 5%-WATER 100 ML IVPB SCH ×3 (01:34→17:39)
[2021-12-03] MEDS: GABAPENTIN 100 MG CAPSULE PO SCH ×3 (06:20→21:19)
[2021-12-03] MEDS: INSULIN SLIDING SCALE (NOVOLOG) 1 VIAL SQ SCH ×4 (06:20→21:19)
[2021-12-03] MEDS: LEVOTHYROXINE NA 50 MCG TABLET (FP) PO SCH (06:20)
[2021-12-03] MEDS: ALBUTEROL SO4 2.5/IPRATROPIUM 0.5 INH SOL 3 ML VIAL.NEB. NEB SCH ×4 (08:12→19:33)
[2021-12-03 08:25] LABS: BASO % 0.8 % (0-2.0); EOS % 2.5 % (0-4.5); HEMATOCRIT 35.9 % (32.4-45.2); HEMOGLOBIN 11.3 GM/dL (10.7-15.3); LYMPH % 20.4 % (8-40); MCH 24.4 pg (25.7-33.7); MCHC 31.5 g/dl (32.0-36.0); MEAN CELL VOLUME 77.3 fl (80-96); MEAN PLT VOLUME 8.6 fl (7.5-11.1); MONO % 6.5 % (3.8-10.2); NEUT % 69.8 % (42.8-82.8); PLATELET COUNT 319 10^3/uL (134-434); RBC 4.64 M/mm3 (3.60-5.2); RDW 15.9 % (11.6-15.6); WHITE BLOOD COUNT 14.1 K/mm3 (4.0-10.0)
[2021-12-03 08:43] LABS: CALCIUM 8.8 mg/dL (8.5-10.1)
[2021-12-03 08:45] LABS: ALBUMIN 2.8 g/dl (3.4-5.0); BLOOD UREA NITROGEN 12.1 mg/dL (7-18)
[2021-12-03 08:47] LABS: CREATININE 1.2 mg/dL (0.55-1.3)
[2021-12-03 08:49] LABS: BILIRUBIN,TOTAL 0.4 mg/dL (0.2-1); TOT PROT 6.3 g/dl (6.4-8.2)
[2021-12-03] MEDS: APIXABAN 2.5 MG TABLET PO SCH ×2 (10:10→21:19)
[2021-12-03] MEDS: PANTOPRAZOLE 40 MG TABLET PO SCH (10:10)
[2021-12-03] MEDS: DULoxetine HCL 30 MG CAPSULE.DR PO SCH (10:13)
[2021-12-03] MEDS: INSULIN (LEVEMIR) 100 UNITS/ML UNITS SQ SCH ×2 (16:37→21:19)
[2021-12-04] MEDS ORDERED: DEXTROSE 5%-WATER 100 ML IVPB ONE ×3 (01:15→17:05)
[2021-12-04] MEDS ORDERED: MEROPENEM 1 GM VIAL (RESTRICTED TO ID) IVPB ONE ×3 (01:15→17:05)
[2021-12-04] MEDS: MEROPENEM 1 GM in DEXTROSE 5%-WATER 100 ML IVPB SCH ×3 (01:45→17:07)
[2021-12-04] MEDS: LEVOTHYROXINE NA 50 MCG TABLET (FP) PO SCH (06:01)
[2021-12-04] MEDS: GABAPENTIN 100 MG CAPSULE PO SCH ×3 (06:01→22:03)
[2021-12-04] MEDS: INSULIN SLIDING SCALE (NOVOLOG) 1 VIAL SQ SCH ×4 (06:01→22:03)
[2021-12-04] MEDS: ALBUTEROL SO4 2.5/IPRATROPIUM 0.5 INH SOL 3 ML VIAL.NEB. NEB SCH ×4 (08:04→19:26)
[2021-12-04 09:58] LABS: BASO % 0.5 % (0-2.0); EOS % 2.8 % (0-4.5); HEMATOCRIT 33.4 % (32.4-45.2); HEMOGLOBIN 10.6 GM/dL (10.7-15.3); LYMPH % 22.9 % (8-40); MCH 24.5 pg (25.7-33.7); MCHC 31.6 g/dl (32.0-36.0); MEAN CELL VOLUME 77.6 fl (80-96); MEAN PLT VOLUME 8.8 fl (7.5-11.1); MONO % 7.4 % (3.8-10.2); NEUT % 66.4 % (42.8-82.8); PLATELET COUNT 311 10^3/uL (134-434); RDW 15.5 % (11.6-15.6); WHITE BLOOD COUNT 13.3 K/mm3 (4.0-10.0)
[2021-12-04] MEDS: INSULIN (LEVEMIR) 100 UNITS/ML UNITS SQ SCH ×2 (10:01→22:03)
[2021-12-04] MEDS: PANTOPRAZOLE 40 MG TABLET PO SCH (10:03)
[2021-12-04] MEDS: DULoxetine HCL 30 MG CAPSULE.DR PO SCH (10:03)
[2021-12-04] MEDS: APIXABAN 2.5 MG TABLET PO SCH ×2 (10:03→22:03)
[2021-12-04 10:09] LABS: CALCIUM 9.1 mg/dL (8.5-10.1)
[2021-12-04 10:10] LABS: ALBUMIN 2.6 g/dl (3.4-5.0); BLOOD UREA NITROGEN 15.4 mg/dL (7-18)
[2021-12-04 10:14] LABS: TOT PROT 5.8 g/dl (6.4-8.2)
[2021-12-04 10:16] LABS: BILIRUBIN,TOTAL 0.3 mg/dL (0.2-1)
[2021-12-05] MEDS ORDERED: MEROPENEM 1 GM VIAL (RESTRICTED TO ID) IVPB ONE ×3 (01:11→18:44)
[2021-12-05] MEDS ORDERED: DEXTROSE 5%-WATER 100 ML IVPB ONE ×3 (01:12→18:44)
[2021-12-05] MEDS: MEROPENEM 1 GM in DEXTROSE 5%-WATER 100 ML IVPB SCH ×3 (01:20→18:46)
[2021-12-05] MEDS: INSULIN SLIDING SCALE (NOVOLOG) 1 VIAL SQ SCH ×4 (06:11→22:48)
[2021-12-05] MEDS: GABAPENTIN 100 MG CAPSULE PO SCH ×3 (06:11→22:47)
[2021-12-05] MEDS: LEVOTHYROXINE NA 50 MCG TABLET (FP) PO SCH (06:11)
[2021-12-05] MEDS: ALBUTEROL SO4 2.5/IPRATROPIUM 0.5 INH SOL 3 ML VIAL.NEB. NEB SCH ×3 (07:45→16:13)
[2021-12-05] MEDS: APIXABAN 2.5 MG TABLET PO SCH ×2 (09:30→22:47)
[2021-12-05] MEDS: DULoxetine HCL 30 MG CAPSULE.DR PO SCH (09:30)
[2021-12-05] MEDS: INSULIN (LEVEMIR) 100 UNITS/ML UNITS SQ SCH ×2 (09:30→22:47)
[2021-12-05] MEDS: PANTOPRAZOLE 40 MG TABLET PO SCH (09:30)
[2021-12-05 23:52] LABS: EPI CELLS 18 /uL (0-25.1); HYALINE CASTS 3 /uL (0-3.1); URINE APPEARANCE CLOUDY; URINE BACTERIA 1320 /uL (0-1359); URINE BILIRUBIN NEGATIVE (NEGATIVE); URINE COLOR YELLOW; URINE GLUCOSE (UA) 2+ (NEGATIVE); URINE KETONE TRACE (NEGATIVE); URINE LEUK ESTERASE NEGATIVE (NEGATIVE); URINE NITRITE NEGATIVE (NEGATIVE); URINE PROTEIN 1+ (NEGATIVE); URINE UROBILINOGEN 0.2 mg/dL (0.2-1.0)
[2021-12-06 01:31] LABS: URINE RBC 2689.5 /uL (0-23.9); URINE WBC 489.2 /uL (0-25.8); YEAST FEW (NEGATIVE)
[2021-12-06] MEDS ORDERED: MEROPENEM 1 GM VIAL (RESTRICTED TO ID) IVPB ONE ×3 (01:55→14:53)
[2021-12-06] MEDS ORDERED: DEXTROSE 5%-WATER 100 ML IVPB ONE ×3 (01:55→14:53)
[2021-12-06] MEDS: MEROPENEM 1 GM in DEXTROSE 5%-WATER 100 ML IVPB SCH ×3 (02:06→17:19)
[2021-12-06] MEDS: LEVOTHYROXINE NA 50 MCG TABLET (FP) PO SCH (06:34)
[2021-12-06] MEDS: GABAPENTIN 100 MG CAPSULE PO SCH ×3 (06:34→21:57)
[2021-12-06] MEDS: INSULIN (LEVEMIR) 100 UNITS/ML UNITS SQ SCH ×2 (06:34→21:57)
[2021-12-06] MEDS: INSULIN SLIDING SCALE (NOVOLOG) 1 VIAL SQ SCH ×4 (06:34→21:58)
[2021-12-06 10:30] LABS: BASO % 0.5 % (0-2.0); EOS % 3.3 % (0-4.5); HEMOGLOBIN 10.9 GM/dL (10.7-15.3); LYMPH % 21.9 % (8-40); MCH 24.8 pg (25.7-33.7); MEAN CELL VOLUME 77.4 fl (80-96); MEAN PLT VOLUME 8.8 fl (7.5-11.1); MONO % 7.1 % (3.8-10.2); NEUT % 67.2 % (42.8-82.8); PLATELET COUNT 328 10^3/uL (134-434); RDW 15.7 % (11.6-15.6); WHITE BLOOD COUNT 12.8 K/mm3 (4.0-10.0)
[2021-12-06 10:54] LABS: ALBUMIN 2.8 g/dl (3.4-5.0); BLOOD UREA NITROGEN 14.2 mg/dL (7-18); CALCIUM 9.3 mg/dL (8.5-10.1)
[2021-12-06 10:57] LABS: CREATININE 0.9 mg/dL (0.55-1.3)
[2021-12-06 10:59] LABS: BILIRUBIN,TOTAL 0.3 mg/dL (0.2-1); TOT PROT 6.2 g/dl (6.4-8.2)
[2021-12-06] MEDS: DULoxetine HCL 30 MG CAPSULE.DR PO SCH (11:04)
[2021-12-06] MEDS: PANTOPRAZOLE 40 MG TABLET PO SCH (11:05)
[2021-12-06] MEDS: APIXABAN 2.5 MG TABLET PO SCH ×2 (11:05→21:57)
[2021-12-07] MEDS ORDERED: DEXTROSE 5%-WATER 100 ML IVPB ONE ×3 (01:31→17:22)
[2021-12-07] MEDS ORDERED: MEROPENEM 1 GM VIAL (RESTRICTED TO ID) IVPB ONE ×3 (01:31→17:22)
[2021-12-07] MEDS: MEROPENEM 1 GM in DEXTROSE 5%-WATER 100 ML IVPB SCH ×3 (02:08→17:25)
[2021-12-07] MEDS: INSULIN (LEVEMIR) 100 UNITS/ML UNITS SQ SCH ×2 (06:52→21:28)
[2021-12-07] MEDS: LEVOTHYROXINE NA 50 MCG TABLET (FP) PO SCH (06:52)
[2021-12-07] MEDS: GABAPENTIN 100 MG CAPSULE PO SCH ×3 (06:52→21:28)
[2021-12-07] MEDS: INSULIN SLIDING SCALE (NOVOLOG) 1 VIAL SQ SCH ×4 (06:52→21:29)
[2021-12-07 08:21] LABS: BASO % 0.7 % (0-2.0); HEMATOCRIT 33.7 % (32.4-45.2); MCHC 32.5 g/dl (32.0-36.0); MEAN CELL VOLUME 76.9 fl (80-96); MEAN PLT VOLUME 8.2 fl (7.5-11.1); MONO % 6.7 % (3.8-10.2); NEUT % 64.6 % (42.8-82.8); PLATELET COUNT 292 10^3/uL (134-434); RBC 4.39 M/mm3 (3.60-5.2); RDW 15.9 % (11.6-15.6); WHITE BLOOD COUNT 11.5 K/mm3 (4.0-10.0)
[2021-12-07] MEDS: PANTOPRAZOLE 40 MG TABLET PO SCH (10:07)
[2021-12-07] MEDS: APIXABAN 2.5 MG TABLET PO SCH ×2 (10:07→21:28)
[2021-12-07] MEDS: DULoxetine HCL 30 MG CAPSULE.DR PO SCH (10:07)
[2021-12-07 13:07] LABS: SARS-CoV-2 NAA Not Detected (Not Detected)
[2021-12-08] MEDS ORDERED: MEROPENEM 1 GM VIAL (RESTRICTED TO ID) IVPB ONE ×2 (00:51→13:15)
[2021-12-08] MEDS ORDERED: DEXTROSE 5%-WATER 100 ML IVPB ONE ×2 (00:52→13:15)
[2021-12-08] MEDS: MEROPENEM 1 GM in DEXTROSE 5%-WATER 100 ML IVPB SCH ×2 (02:09→13:24)
[2021-12-08] MEDS: INSULIN SLIDING SCALE (NOVOLOG) 1 VIAL SQ SCH ×4 (06:53→21:03)
[2021-12-08] MEDS: GABAPENTIN 100 MG CAPSULE PO SCH ×3 (06:53→21:02)
[2021-12-08] MEDS: INSULIN (LEVEMIR) 100 UNITS/ML UNITS SQ SCH ×2 (06:53→21:03)
[2021-12-08] MEDS: LEVOTHYROXINE NA 50 MCG TABLET (FP) PO SCH (06:53)
[2021-12-08 07:45] LABS: BASO % 0.7 % (0-2.0); EOS % 2.3 % (0-4.5); HEMATOCRIT 34.7 % (32.4-45.2); HEMOGLOBIN 11.3 GM/dL (10.7-15.3); LYMPH % 27.3 % (8-40); MCHC 32.6 g/dl (32.0-36.0); MEAN CELL VOLUME 76.7 fl (80-96); MEAN PLT VOLUME 8.5 fl (7.5-11.1); MONO % 7.4 % (3.8-10.2); NEUT % 62.3 % (42.8-82.8); PLATELET COUNT 278 10^3/uL (134-434); RBC 4.52 M/mm3 (3.60-5.2); RDW 15.6 % (11.6-15.6)
[2021-12-08] MEDS: APIXABAN 2.5 MG TABLET PO SCH ×2 (13:27→21:02)
[2021-12-08] MEDS: PANTOPRAZOLE 40 MG TABLET PO SCH (13:28)
[2021-12-08] MEDS: DULoxetine HCL 30 MG CAPSULE.DR PO SCH (13:28)
[2021-12-08] MEDS: DAPTOMYCIN 600 MG in SODIUM CHLORIDE 50 ML IVPB SCH (17:45)
[2021-12-09] MEDS: INSULIN SLIDING SCALE (NOVOLOG) 1 VIAL SQ SCH ×4 (06:04→21:05)
[2021-12-09] MEDS: INSULIN (LEVEMIR) 100 UNITS/ML UNITS SQ SCH ×2 (06:04→21:05)
[2021-12-09] MEDS: LEVOTHYROXINE NA 50 MCG TABLET (FP) PO SCH (06:04)
[2021-12-09] MEDS: GABAPENTIN 100 MG CAPSULE PO SCH ×3 (06:04→21:05)
[2021-12-09 07:06] LABS: BASO % 0.7 % (0-2.0); EOS % 2.7 % (0-4.5); HEMATOCRIT 35.6 % (32.4-45.2); HEMOGLOBIN 11.4 GM/dL (10.7-15.3); LYMPH % 29.2 % (8-40); MCH 24.5 pg (25.7-33.7); MEAN CELL VOLUME 76.5 fl (80-96); MEAN PLT VOLUME 8.2 fl (7.5-11.1); MONO % 7.4 % (3.8-10.2); PLATELET COUNT 292 10^3/uL (134-434); RBC 4.66 M/mm3 (3.60-5.2); RDW 15.7 % (11.6-15.6); WHITE BLOOD COUNT 11.2 K/mm3 (4.0-10.0)
[2021-12-09] MEDS: PANTOPRAZOLE 40 MG TABLET PO SCH (11:34)
[2021-12-09] MEDS: APIXABAN 2.5 MG TABLET PO SCH ×2 (11:34→21:05)
[2021-12-09] MEDS: DULoxetine HCL 30 MG CAPSULE.DR PO SCH (11:34)
[2021-12-09] MEDS: DAPTOMYCIN 600 MG in SODIUM CHLORIDE 50 ML IVPB SCH (12:17)
[2021-12-10] MEDS: GABAPENTIN 100 MG CAPSULE PO SCH ×3 (06:17→21:23)
[2021-12-10] MEDS: INSULIN (LEVEMIR) 100 UNITS/ML UNITS SQ SCH ×2 (06:17→21:23)
[2021-12-10] MEDS: INSULIN SLIDING SCALE (NOVOLOG) 1 VIAL SQ SCH ×4 (06:17→21:23)
[2021-12-10] MEDS: LEVOTHYROXINE NA 50 MCG TABLET (FP) PO SCH (06:17)
[2021-12-10 08:22] LABS: BASO % 0.7 % (0-2.0); EOS % 2.4 % (0-4.5); HEMATOCRIT 35.4 % (32.4-45.2); HEMOGLOBIN 11.6 GM/dL (10.7-15.3); LYMPH % 26.4 % (8-40); MCHC 32.8 g/dl (32.0-36.0); MEAN CELL VOLUME 76.2 fl (80-96); MEAN PLT VOLUME 8.4 fl (7.5-11.1); NEUT % 63.5 % (42.8-82.8); PLATELET COUNT 276 10^3/uL (134-434); RBC 4.64 M/mm3 (3.60-5.2); RDW 15.5 % (11.6-15.6); WHITE BLOOD COUNT 12.8 K/mm3 (4.0-10.0)
[2021-12-10 08:43] LABS: CALCIUM 9.1 mg/dL (8.5-10.1)
[2021-12-10 08:44] LABS: BLOOD UREA NITROGEN 21.4 mg/dL (7-18)
[2021-12-10 08:47] LABS: CREATININE 1.1 mg/dL (0.55-1.3)
[2021-12-10 08:49] LABS: BILIRUBIN,TOTAL 0.4 mg/dL (0.2-1)
[2021-12-10 08:50] LABS: TOT PROT 6.2 g/dl (6.4-8.2)
[2021-12-10] MEDS: PANTOPRAZOLE 40 MG TABLET PO SCH (10:50)
[2021-12-10] MEDS: APIXABAN 2.5 MG TABLET PO SCH ×2 (10:50→21:23)
[2021-12-10] MEDS: DULoxetine HCL 30 MG CAPSULE.DR PO SCH (10:51)
[2021-12-10] MEDS: DAPTOMYCIN 600 MG in SODIUM CHLORIDE 50 ML IVPB SCH (10:51)
[2021-12-11] MEDS: LEVOTHYROXINE NA 50 MCG TABLET (FP) PO SCH (07:01)
[2021-12-11] MEDS: GABAPENTIN 100 MG CAPSULE PO SCH ×3 (07:01→21:16)
[2021-12-11] MEDS: INSULIN SLIDING SCALE (NOVOLOG) 1 VIAL SQ SCH ×4 (07:16→21:16)
[2021-12-11] MEDS: INSULIN (LEVEMIR) 100 UNITS/ML UNITS SQ SCH ×2 (07:16→21:17)
[2021-12-11] MEDS: DULoxetine HCL 30 MG CAPSULE.DR PO SCH (10:18)
[2021-12-11] MEDS: APIXABAN 2.5 MG TABLET PO SCH ×2 (10:19→21:16)
[2021-12-11] MEDS: PANTOPRAZOLE 40 MG TABLET PO SCH (10:19)
[2021-12-11] MEDS: DAPTOMYCIN 600 MG in SODIUM CHLORIDE 50 ML IVPB SCH (10:19)
[2021-12-11 10:38] LABS: BASO % 0.7 % (0-2.0); HEMATOCRIT 34.8 % (32.4-45.2); HEMOGLOBIN 11.3 GM/dL (10.7-15.3); MCH 24.9 pg (25.7-33.7); MCHC 32.6 g/dl (32.0-36.0); MEAN CELL VOLUME 76.5 fl (80-96); MEAN PLT VOLUME 8.9 fl (7.5-11.1); MONO % 6.6 % (3.8-10.2); NEUT % 65.7 % (42.8-82.8); PLATELET COUNT 304 10^3/uL (134-434); RBC 4.55 M/mm3 (3.60-5.2); RDW 15.9 % (11.6-15.6); WHITE BLOOD COUNT 12.7 K/mm3 (4.0-10.0)
[2021-12-11 10:51] LABS: ALBUMIN 2.9 g/dl (3.4-5.0); BLOOD UREA NITROGEN 22.3 mg/dL (7-18); CALCIUM 9.4 mg/dL (8.5-10.1)
[2021-12-11 10:54] LABS: CREATININE 1.1 mg/dL (0.55-1.3)
[2021-12-11 10:55] LABS: BILIRUBIN,TOTAL 0.6 mg/dL (0.2-1); TOT PROT 6.2 g/dl (6.4-8.2)
[2021-12-12] MEDS: INSULIN SLIDING SCALE (NOVOLOG) 1 VIAL SQ SCH ×4 (06:38→21:38)
[2021-12-12] MEDS: GABAPENTIN 100 MG CAPSULE PO SCH ×3 (06:38→21:29)
[2021-12-12] MEDS: LEVOTHYROXINE NA 50 MCG TABLET (FP) PO SCH (06:38)
[2021-12-12] MEDS: INSULIN (LEVEMIR) 100 UNITS/ML UNITS SQ SCH ×2 (06:38→21:30)
[2021-12-12] MEDS: PANTOPRAZOLE 40 MG TABLET PO SCH (10:19)
[2021-12-12] MEDS: APIXABAN 2.5 MG TABLET PO SCH ×2 (10:19→21:29)
[2021-12-12] MEDS: DULoxetine HCL 30 MG CAPSULE.DR PO SCH (10:21)
[2021-12-12 10:53] LABS: BASO % 0.4 % (0-2.0); EOS % 2.4 % (0-4.5); HEMATOCRIT 33.7 % (32.4-45.2); HEMOGLOBIN 11.1 GM/dL (10.7-15.3); LYMPH % 26.7 % (8-40); MCH 25.1 pg (25.7-33.7); MEAN CELL VOLUME 76.1 fl (80-96); MONO % 6.7 % (3.8-10.2); NEUT % 63.8 % (42.8-82.8); PLATELET COUNT 305 10^3/uL (134-434); RBC 4.43 M/mm3 (3.60-5.2); RDW 15.8 % (11.6-15.6); WHITE BLOOD COUNT 11.7 K/mm3 (4.0-10.0)
[2021-12-12 10:55] LABS: CALCIUM 9.3 mg/dL (8.5-10.1)
[2021-12-12 10:56] LABS: ALBUMIN 2.9 g/dl (3.4-5.0); BLOOD UREA NITROGEN 17.9 mg/dL (7-18)
[2021-12-12 11:01] LABS: BILIRUBIN,TOTAL 0.4 mg/dL (0.2-1)
[2021-12-13] MEDS: INSULIN (LEVEMIR) 100 UNITS/ML UNITS SQ SCH ×2 (06:05→22:01)
[2021-12-13] MEDS: LEVOTHYROXINE NA 50 MCG TABLET (FP) PO SCH (06:06)
[2021-12-13] MEDS: GABAPENTIN 100 MG CAPSULE PO SCH ×3 (06:06→22:00)
[2021-12-13] MEDS: INSULIN SLIDING SCALE (NOVOLOG) 1 VIAL SQ SCH ×4 (06:06→22:02)
[2021-12-13 08:56] LABS: BASO % 0.7 % (0-2.0); EOS % 1.9 % (0-4.5); HEMATOCRIT 34.8 % (32.4-45.2); HEMOGLOBIN 11.1 GM/dL (10.7-15.3); LYMPH % 27.8 % (8-40); MCH 24.4 pg (25.7-33.7); MCHC 31.8 g/dl (32.0-36.0); MEAN CELL VOLUME 76.8 fl (80-96); MEAN PLT VOLUME 9.9 fl (7.5-11.1); MONO % 6.4 % (3.8-10.2); NEUT % 63.2 % (42.8-82.8); PLATELET COUNT 326 10^3/uL (134-434); RBC 4.53 M/mm3 (3.60-5.2); RDW 15.5 % (11.6-15.6); WHITE BLOOD COUNT 11.8 K/mm3 (4.0-10.0)
[2021-12-13 09:17] LABS: ALBUMIN 2.9 g/dl (3.4-5.0); BLOOD UREA NITROGEN 16.2 mg/dL (7-18); CALCIUM 9.3 mg/dL (8.5-10.1)
[2021-12-13 09:22] LABS: BILIRUBIN,TOTAL 0.4 mg/dL (0.2-1); TOT PROT 6.1 g/dl (6.4-8.2)
[2021-12-13] MEDS ORDERED: METOCLOPRAMIDE HCL INJECTION 10 MG/2 ML VIAL IVPUSH ONE (09:44)
[2021-12-13] MEDS: APIXABAN 2.5 MG TABLET PO SCH ×2 (11:51→22:00)
[2021-12-13] MEDS: PANTOPRAZOLE 40 MG TABLET PO SCH (11:51)
[2021-12-13] MEDS: DULoxetine HCL 30 MG CAPSULE.DR PO SCH (11:54)
[2021-12-13] MEDS: VANCOMYCIN 250 MG/5 ML ORAL SOLUTION PO SCH ×2 (17:39→23:12)
[2021-12-13] MEDS ORDERED: METOCLOPRAMIDE HCL INJECTION 10 MG/2 ML VIAL IVPUSH PRN (18:27)
[2021-12-14] MEDS: INSULIN SLIDING SCALE (NOVOLOG) 1 VIAL SQ SCH ×3 (06:59→16:34)
[2021-12-14] MEDS: LEVOTHYROXINE NA 50 MCG TABLET (FP) PO SCH (06:59)
[2021-12-14] MEDS: INSULIN (LEVEMIR) 100 UNITS/ML UNITS SQ SCH (06:59)
[2021-12-14] MEDS: GABAPENTIN 100 MG CAPSULE PO SCH ×2 (06:59→13:23)
[2021-12-14] MEDS: VANCOMYCIN 250 MG/5 ML ORAL SOLUTION PO SCH ×2 (07:01→13:22)
[2021-12-14 08:54] LABS: BASO % 1.2 % (0-2.0); EOS % 1.9 % (0-4.5); HEMATOCRIT 36.2 % (32.4-45.2); HEMOGLOBIN 11.5 GM/dL (10.7-15.3); LYMPH % 22.9 % (8-40); MCH 24.3 pg (25.7-33.7); MCHC 31.7 g/dl (32.0-36.0); MEAN CELL VOLUME 76.7 fl (80-96); MEAN PLT VOLUME 9.2 fl (7.5-11.1); MONO % 5.7 % (3.8-10.2); NEUT % 68.3 % (42.8-82.8); PLATELET COUNT 315 10^3/uL (134-434); RBC 4.72 M/mm3 (3.60-5.2); RDW 15.7 % (11.6-15.6); WHITE BLOOD COUNT 11.8 K/mm3 (4.0-10.0)
[2021-12-14 09:17] LABS: ALBUMIN 3.3 g/dl (3.4-5.0)
[2021-12-14 09:19] LABS: BLOOD UREA NITROGEN 15.2 mg/dL (7-18); CALCIUM 9.4 mg/dL (8.5-10.1)
[2021-12-14 09:22] LABS: TOT PROT 6.4 g/dl (6.4-8.2)
[2021-12-14 09:24] LABS: BILIRUBIN,TOTAL 0.6 mg/dL (0.2-1)
[2021-12-14] MEDS: DULoxetine HCL 30 MG CAPSULE.DR PO SCH (10:55)
[2021-12-14] MEDS: APIXABAN 2.5 MG TABLET PO SCH (10:55)
[2021-12-14 15:01] VITALS: PULSE 82
[2021-12-14 17:00] VITALS: BP 117/59; TEMP 98.2
== END 2021-12-14 17:03 | DRG 871 ==
LOC: JER 21:20 → JERBED 11-30 00:37 → J5S 11-30 05:55
PROVIDERS: ADMIT Hospitalist
DX: A41.89 Other specified sepsis (principal); J96.01 Acute respiratory failure with hypoxia; J18.9 Pneumonia, unspecified organism; J47.0 Bronchiectasis with acute lower respiratory infection; N17.9 Acute kidney failure, unspecified; J84.9 Interstitial pulmonary disease, unspecified; N39.0 Urinary tract infection, site not specified; E03.9 Hypothyroidism, unspecified; E78.5 Hyperlipidemia, unspecified; I48.91 Unspecified atrial fibrillation; G89.29 Other chronic pain; I12.9 Hypertensive chronic kidney disease with stage 1 through stage 4 chronic kidney disease, or unspecified chronic kidney disease; E11.22 Type 2 diabetes mellitus with diabetic chronic kidney disease; N18.30 Chronic kidney disease, stage 3 unspecified; F41.8 Other specified anxiety disorders; E11.42 Type 2 diabetes mellitus with diabetic polyneuropathy; M79.7 Fibromyalgia; F03.90 Unspecified dementia, unspecified severity, without behavioral disturbance, psychotic disturbance, mood disturbance, and anxiety; R19.7 Diarrhea, unspecified; R11.10 Vomiting, unspecified
CPT/HCPCS: 36415; 71045-TC-FY; 71250-TC; 80053; 81003; 82550; 82570; 82962; 83036; 83735; 84100; 84300; 84443; 85025; 87040; 87045; 87046; 87070; 87081; 87086; 87177; 87186; 87205; 87209; 87324; 87449; 87493; 87804; 87899; 93005; 93010; 94640; 97116-GP; 97161-GP; 99285-25; C9803-CS; J0878; U0003; U0005